=== PATIENT | male | born 1985 | race Asian ===

== ENCOUNTER → 2017-03-24 | Outpatient (CLI) | payer OTHER ==
[~2017-03-24] MED LIST: MAPA325T2 PO; MELO15TA4 PO; NEXI20CA PO; ONDA4TAB5 PO
--- NOTE | 2017-03-24 14:14 | REP ---
TRIPLE PHASE BONE SCAN OF THE LOWER LEGS: Following the intravenous administration of 22 millicuries technetium 99m MDP, the patient's lower legs were imaged in the flow phase in the anterior and posterior projections showing symmetrical blood flow. Immediate blood pool and two-hour delayed images are performed of the lower legs in the anterior, posterior and both lateral projections. There is linear increased activity on delayed images along the tibial shafts bilaterally compatible with stress periositis or erwin splints. There is a focal area of increased uptake along the medial cortex of the distal right tibia compatible with a focal stress fracture at that location. There is also focal increased uptake of a mild degree in the mid left fibula suggesting a stress fracture at that location. Signed by Chad Peraza MD 03/24/2017 07:53 P
== END ==
LOC: M RAD 10:43
PROVIDERS: ATTEND Student in an Organized Health Care Education/Training Program
DX: M79.661 Pain in right lower leg (principal); M79.662 Pain in left lower leg
CPT/HCPCS: 78315; A9503